=== PATIENT | male | born 2000 | race Caucasian/White ===

== ENCOUNTER 2022-07-19 19:57 | Emergency (ER) | payer OTHER ==
[2022-07-19 20:12] VITALS: BP 141/80
--- NOTE | 2022-07-19 20:26 | ED Physician Documentation ---
PD HPI LOWER EXT INJURY - Stated complaint Stated Complaint: RT FOOT INJ - Chief complaint Chief Complaint: Trauma Ext - History obtained from History obtained from: Patient - History of Present Illness PD HPI LOW EXT INJURY LOCATION: Right, Knee, Foot Type of injury: Fall Where injury occurred: Work Timing - onset: Yesterday Timing - details: Abrupt onset Pain level max: 7 Pain level now: 5 Improved by: Rest, Ice, Immobilization Worsened by: Moving, Palpating Associated symptoms: Swelling. No: Weakness, Numbness, Tingling Contributing factors: No: Anticoagulated Recently seen: Not recently seen Review of Systems Constitutional: denies: Fever, Chills GI: denies: Vomiting, Diarrhea Skin: denies: Rash Musculoskeletal: denies: Neck pain, Back pain Neurologic: denies: Headache PD PAST MEDICAL HISTORY - Past Medical History Past Medical History: No - Past Surgical History Past Surgical History: No - Present Medications Home Medications: Ambulatory Orders Medication Instructions Recorded Confirmed No Known Home Medications 07/19/22 07/19/22 - Allergies Allergies/Adverse Reactions: Allergies Allergy/AdvReac Type Severity Reaction Status Date / Time No Known Drug Allergies Allergy Verified 07/19/22 20:11 - Living Situation Living Arrangement: reports: At home - Social History Does the pt have substance abuse?: No - Family History Family history: reports: Non contributory PD ED PE NORMAL - Vitals Vital signs reviewed: Yes - General General: Alert and oriented X 3, No acute distress - HEENT HEENT: Moist mucous membranes - Derm Derm: Warm and dry - Extremities Extremities: Other (R foot/ankle - Swelling to the medial malleolus and the medial side of the foot. There is a small amount of ecchymosis here as well. Also has some tenderness along the base of the fifth metatarsal. Neurovascular intact. Otherwise normal examination of the foot and ankle) - Neuro Neuro: Alert and oriented X 3 - Psych Psych: Normal mood, Normal affect Results - Vitals Vitals: Vital Signs - 24 hr 07/19/22 20:00 Temperature 36.7 C Heart Rate 95 Respiratory 16 Rate Blood Pressure 141/80 H O2 Saturation 100 Oxygen O2 Source Room air - Rads (name of study) Right foot x-ray Relevant Findings:: Final report received, See rad report Right ankle x-ray Relevant Findings:: Final report received, See rad report PD Medical Decision Making - ED course Complexity details: reviewed results, re-evaluated patient, considered di fferential, d/w patient ED course: 22-year-old male with right ankle and right foot pain. X-rays do not show any acute abnormalities, there is a question of a potential fracture at the base of the second metatarsal. Patient has no tenderness or swelling at that site. He was placed in an Aircast, given crutches. We will have him follow-up with his PCP for further care and repeat x-rays in 1 week. Patient declines any pain medication here or for home. Patient counseled regarding signs and symptoms for which I believe and urgent re-evaluation would be necessary. Patient with good understanding of and agreement to plan and is comfortable going home at this time This document was made in part using voice recognition software. While efforts are made to proofread this document, sound alike and grammatical errors may occur. Departure - Departure Disposition: Home, Self Care Clinical Impression: Right ankle sprain Qualifiers: Encounter type: initial encounter Involved ligament of ankle: unspecified ligament Qualified Code(s): S93.401A - Sprain of unspecified ligament of right ankle, initial encounter Right foot sprain Qualifiers: Encounter type: initial encounter Qualified Code(s): S93.601A - Unspecified sprain of right foot, initial encounter Condition: Good Instructions: ED Sprain Foot, ED Sprain Ankle Follow-Up: your,doctor in 1 week [Other] Comments: Your x-rays do not show any acute abnormalities today. There is a question of a possible fracture at the base of your second metatarsal, but you do not have pain at the site, therefore I do not think this likely represents a fracture. If you are still having pain in 1 week, and have repeat x-rays performed with your doctor. You can use Motrin or Tylenol as needed for pain. You can bear weight as tolerated. Discharge Date/Time: 07/19/22 21:36
--- NOTE | 2022-07-19 20:37 | XRAY Report ---
PROCEDURE: Foot 3 View RT INDICATIONS: Jumped off a truck, injured R foot. TECHNIQUE: 3 views of the foot were acquired. COMPARISON: None. FINDINGS: Bones: No definite fractures or dislocations but at the lateral base of the second metatarsal bone t here is a possible minimally displaced fracture plane. No suspicious bony lesions. Soft tissues: No suspicious soft tissue calcifications or masses. IMPRESSION: No definite osseous trauma found, normal alignment. As noted above there is a possible nondisplaced o r minimally displaced fracture at the lateral base of the second metatarsal bone. Depending on the cl inical status follow-up by CT scanning may be warranted. Reviewed by: Tony Pedraza MD on 07/19/2022 8:35 PM PDT Approved by: Tony Pedraza MD on 07/19/2022 8:35 PM PDT Station ID: [id number]
--- NOTE | 2022-07-19 20:38 | XRAY Report ---
PROCEDURE: Ankle 3 View RT INDICATIONS: fall, ankle pain TECHNIQUE: 3 views of the ankle were acquired. COMPARISON: Foot plain film same day. FINDINGS: Bones: No fractures or dislocations. Ankle mortise is normally aligned. No suspicious bony lesions . Soft tissues: No tibiotalar joint effusion. Achilles tendon appears normal. IMPRESSION: No definite trauma found. Reviewed by: Tony Pedraza MD on 07/19/2022 8:36 PM PDT Approved by: Tony Pedraza MD on 07/19/2022 8:36 PM PDT Station ID: [id number]
== END 2022-07-19 21:36 | disposition home or self-care (01) ==
LOC: ED 19:57
DX: S93.401A Sprain of unspecified ligament of right ankle, initial encounter (principal); S93.601A Unspecified sprain of right foot, initial encounter; W19.XXXA Unspecified fall, initial encounter
CPT/HCPCS: 99283